=== PATIENT | female | born 1975 | race Caucasian/White ===

== ENCOUNTER 2023-07-02 08:47 | Day surgery (SDC) | payer OTHER ==
[2023-07-02] MEDS ORDERED: FERRIC CARBOXYMALTOSE 750 MG in SODIUM CHLORIDE 250 ML IVPB ONE (10:00)
[2023-07-02 15:55] VITALS: RESP 16; TEMP 97.8
[2023-07-02 15:59] VITALS: BP 121/83; PULSE 65
== END 2023-07-02 10:00 | disposition home or self-care (01) ==
LOC: JONCNONCHE 08:47 → J7W 09:00 → JONCNONCHE 10:00
PROVIDERS: ATTEND Internal Medicine Hematology & Oncology
PROC: 3E033GC Introduction of Other Therapeutic Substance into Peripheral Vein, Percutaneous Approach (ICD-10-PCS; principal; 2023-07-02)
DX: D50.9 Iron deficiency anemia, unspecified (principal)
CPT/HCPCS: 96365; J1439

== ENCOUNTER 2023-07-23 09:04 | Day surgery (SDC) | payer OTHER ==
[~2023-07-23 09:04] MED LIST: CYANOCOBALAMIN (VITAMIN B-12) 1000 MCG/1 ML VIAL SQ ONE; FERRIC CARBOXYMALTOSE 750 MG in SODIUM CHLORIDE 250 ML IVPB ONE
[2023-07-23] MEDS ORDERED: FERRIC CARBOXYMALTOSE 750 MG in SODIUM CHLORIDE 250 ML IVPB ONE (09:30)
[2023-07-23 12:54] VITALS: BP 124/81; PULSE 61; RESP 20; TEMP 98.1
== END 2023-07-23 11:05 | disposition home or self-care (01) ==
LOC: JONCNONCHE 09:04 → J7W 09:05 → JONCNONCHE 11:05
PROVIDERS: ATTEND Internal Medicine Hematology & Oncology
PROC: 3E033GC Introduction of Other Therapeutic Substance into Peripheral Vein, Percutaneous Approach (ICD-10-PCS; principal; 2023-07-23)
DX: D50.9 Iron deficiency anemia, unspecified (principal)
CPT/HCPCS: 96365; J1439